=== PATIENT | female | born 1945 | race Caucasian/White ===

== ENCOUNTER → 2020-12-31 | Outpatient (CLI) | payer MEDICARE, OTHER | LOC: EXRD 08:26 | DX: Z78.0 Asymptomatic menopausal state (principal); M85.88 Other specified disorders of bone density and structure, other site; M81.0 Age-related osteoporosis without current pathological fracture | CPT/HCPCS: 77080 ==

== ENCOUNTER 2021-03-06 18:09 | Emergency (ER) | payer MEDICARE, OTHER ==
[2021-03-06 19:12] LABS: HEMOGLOBIN 15.4 gm/dl (12.3-15.3); RED BLOOD COUNT 5.06 M/UL (4.00-5.10); WHITE BLOOD COUNT 9.2 K/UL (4.5-11.0)
[2021-03-06 19:39] LABS: BUN/CREATININE RATIO 12 (0-10)
== END 2021-03-06 21:54 | disposition home or self-care (01) ==
LOC: ER1 18:09
PROVIDERS: Physician Assistant
DX: I10 Essential (primary) hypertension (principal); Z85.3 Personal history of malignant neoplasm of breast
CPT/HCPCS: 71045; 80053; 82550; 82553; 83874; 83880; 84484; 85025; 85610; 85730; 93005; 99284